=== PATIENT | male | born 2000 | race Caucasian/White ===

== ENCOUNTER 2024-11-01 08:00 | Day surgery (SDC) | payer MEDICAID, SELFPAY ==
[2024-10-26 10:59] LABS: Basophils # (Auto) 0.0 Thou/mm3 (0.0-0.2); Basophils % (Auto) 0 % (0-2.5); Eosinophils # (Auto) 0.1 Thou/mm3 (0.0-0.5); Eosinophils % (Auto) 2 % (0-10); Hematocrit 42.4 % (41.0-53.0); Hemoglobin 14.4 g/dL (13.5-16.0); Immature Granulocytes Auto 0.01 Thou/mm3 (0.00-0.00); Lymphocytes # (Auto) 1.1 Thou/mm3 (1.0-4.8); Lymphocytes % (Auto) 28 % (10-50); Mean Corpuscular HGB Conc 34.0 g/dl (31.0-37.0); Mean Corpuscular Hemoglobin 29.8 pg (25.0-35.0); Mean Corpuscular Volume 88 fL (80-100); Monocytes # (Auto) 0.4 Thou/mm3 (0.0-0.8); Monocytes % (Auto) 10 % (0-12); Neutrophils # (Auto) 2.4 Thou/mm3 (1.8-7.7); Neutrophils % (Auto) 60 % (37-80); Nucleated Red Blood Cell # 0.00 Thou/mm3 (0.00-0.00); Nucleated Red Blood Cell % 0 /100 WBC (0); Platelet Count 196 Thou/mm3 (140-440); RDW Standard Deviation 41.4 fL (35.1-43.9); Red Blood Count 4.84 Miln/mm3 (4.50-5.90); White Blood Count 4.0 Thou/mm3 (3.8-10.6)
[2024-10-26 11:24] LABS: Anion Gap 7 (7-16); BUN/Creatinine Ratio 12 Ratio (12-20); Blood Urea Nitrogen 12 mg/dL (9-23); Calcium 9.7 mg/dL (8.3-10.6); Carbon Dioxide 30.0 mMol/L (20.0-31.0); Chloride 105 mMol/L (98-107); Creatinine (Component) 1.0 mg/dL (0.6-1.3); Estimated Creatinine Clearance 105.9 mL/min (>60); Glucose 82 mg/dL (74-106); Osmolality,Calculated 281 (275-295); Potassium 4.4 mMol/L (3.4-5.1); Sodium 142 mMol/L (136-145); eGFR > 60 See Note
--- NOTE | 2024-10-31 12:12 | ESHP_ITS ---
RE: QUINTON SCHAFFER : 2000 DATE OF ADMISSION: 11/01/2024 HISTORY OF PRESENT ILLNESS: The patient wishes to have bilateral vasectomy for family planning. A 24-year-old gentleman who came to me desiring bilateral vasectomy. He has 2 children. PAST MEDICAL HISTORY: There is no history of diabetes mellitus or hypertension. PAST SURGICAL HISTORY: [place] teeth surgery. HOME MEDICATIONS: None. ALLERGIES: NONE KNOWN. PHYSICAL EXAMINATION: HEENT: Normal. NECK: Supple. LUNGS: Clear. CARDIOVASCULAR: Heart sounds are normal. ABDOMEN: Soft without any organomegaly. No guarding. No rigidity. EXTREMITIES: Normal. IMPRESSION: The patient desiring bilateral vasectomy for family planning. PLAN: Bilateral vasectomy. Planned procedure, risks and complications have been discussed with the patient. The patient has understood them and agreed to proceed. DT: 11:53:03 TT: 12:10:00 Ref: [id number] - TID: [id number]
[2024-11-01] VITALS (8 sets, daily range): BP systolic 115–138; BP diastolic 65–97; PULSE 61–87; RESP 12–19; TEMP 36.6; O2SAT 98–100; BMI 19.8
[2024-11-01] MEDS: RINGERS LACTATED 1000 ML 1,000 ML 20 ML IV (08:23)
--- NOTE | 2024-11-01 10:35 | SUR.PHASEI ---
1035 Patient arrived to recovery resting comfortably in [facility], [place], on LMA in place with oxygen via nasal cannula 4L inserting into LMA, breathing unlabored, vital sign stable, dressing intact to scrotal area; sutures, telfa,, fluffs, scrotal support, no bleeding noted, report received from Favio ELDER/ Dr. Nelson and Jamey GOETZ
--- NOTE | 2024-11-01 11:55 | SUR.PHASEII ---
1155 Patient meets discharge criteria from recovery, awake and alert, breathing unlabored, vital signs stable, denies pain, dressing intact; no bleeding noted, drinking fluids; tolerating well, denies nausea, assisted with dressing into his clothing by his , patient voided in the restroom prior to discharge, discharge instructions given to patient and patients , signed discharge instructions. Patient given all his belongings prior to discharge, transported via wheelchair and left in a private vehicle
--- NOTE | 2024-11-01 13:07 | ESOP_ITS ---
RE: QUINTON SCHAFFER : 2000 DATE OF OPERATION: 11/01/2024 PREOPERATIVE DIAGNOSIS: The patient desires bilateral vasectomy for family planning. POSTOPERATIVE DIAGNOSIS: The patient desires bilateral vasectomy for family planning. PROCEDURE PERFORMED: Bilateral vasectomy. ANESTHESIA: General by Dr. Nelson. INDICATION: The patient is a 24-year-old gentleman desiring bilateral vasectomy for family planning. Planned procedure, risks, and complications have been discussed with the patient. The patient understood them and agreed to proceed. DESCRIPTION OF PROCEDURE: After the patient was brought to the operating table under adequate general anesthesia and supine position, partially prepped and draped in the usual fashion. The right vas deferens was made subcutaneous. A small transverse incision of 0.5 cm was made over the vas deferens. Dissection was then carried out. A small segment of the right vas deferens was isolated from surrounding structures and 2 clamps were placed. A segment in between the clamps was excised and was sent for histological examination. The vas deferens are fulgurated and ligated using 3-0 chromic gut suture. Complete hemostasis was obtained. The skin wound was closed with interrupted sutures of 3-0 chromic gut. In a similar fashion, the left-sided vasectomy was also done. Local anesthetic was injected at the site of the skin. Sterile dressing was then applied. The patient was then transferred to the recovery room in a satisfactory condition having tolerated the entire procedure well. Sponge count and needle count at the end of the procedure was found to be correct. Estimated blood loss was approximately 1 mL. DT: 10:43:18 TT: 13:06:00 Ref: [id number] - TID: [id number]
== END 2024-11-01 11:55 | disposition home or self-care (01) ==
PROVIDERS: PCP Family Medicine; Referring Provider Surgery; Visit Provider Surgery
PROC: (CPT 55250; principal; 2024-11-01 10:00)
DX: Z30.2 Encounter for sterilization (principal)
CPT/HCPCS: 55250; 36415; 80048; 85025; A4217; A4649; J0690; J1100; J2405; J2704; J3010; J3490; J7120; L8330; A9270

== ENCOUNTER → 2024-11-25 | Outpatient (CLI) | payer SELFPAY ==
[2024-11-25 14:15] LABS: Post Vasectomy Sperm Presence No Spermatozoa Seen (No Sperm)
== END | disposition home or self-care (01) ==
PROVIDERS: PCP Family Medicine; Referring Provider Family Medicine; Visit Provider Family Medicine
DX: Z30.09 Encounter for other general counseling and advice on contraception (principal)
CPT/HCPCS: 89321